=== PATIENT | female | born 1935 | race African-American/Black ===

== ENCOUNTER 2016-09-01 21:02 | Emergency (ER) | payer MEDICARE ==
--- NOTE | ~2016-09-01 | CR72 ---
[facility] A Service of [facility] & [facility] RADIOLOGY TEXT RESULTS PATIENT: MIKAELA MAYER LOCATION: [facility] : 35 UNIT #: [id number] AGE: [address]: Jimmie Pritchard MD SEX: F ORDER DR: [id number] [facility] [address] [place], [place] [address] [id number] E MR#: [id number] Acc #: [id number] NAME: MIKAELA MAYER : 1935 SEX: F STUDY DATE/TIME: 09/01/2016 21:20 UNIT: [facility] ROOM: STUDY DESCRIPTION: CR Chest Single View Portable Attending Physician: Jimmie Pritchard M.D. Ordering Physician: Jimmie Pritchard M.D. Primary Care Physician: Zac Benavides M.D. MEDICAL IMAGING REPORT This report is preliminary unless electronic signature is present EXAM Chest single view, 09/01/16 COMPARISON STUDIES Single view chest dated 06/09/16 HISTORY Hypertension, shortness of air, dizziness today. FINDINGS A single view of the chest was obtained. Lungs are well aerated. Heart and mediastinum are within normal limits. Stable prominence of the right hilar and infrahilar opacity likely relating to hilar structures rather than superimposed acute abnormality. Bilateral shoulder moderate osteoarthritis changes are noted, stable. IMPRESSION No significant interval change. Dictated by... Jarret Corrales M.D. THIS IS AN ELECTRONICALLY VERIFIED REPORT Jarret Corrales M.D. at 09/03/2016 1:45 PM CPR/ea TD: 09/02/2016 16:03 JOB #: [id number] MEDICAL IMAGING REPORT Page 1 of 1 COPY
--- NOTE | ~2016-09-01 | EKG ---
PATIENT: MIKAELA MAYER UNIT #: [id number] Ventricular Rate: 78 BPM Atrial Rate: 78 BPM P-R Interval: 152 ms QRS Duration: 80 ms Q-T Interval: 384 ms QTC Calculation(Bezet): 437 ms P [place]: 21 degrees Calculated R [place]: 51 degrees Calculated T [place]: 81 degrees Diagnosis Line: Normal sinus rhythm Diagnosis Line: Normal ECG Diagnosis Line: No previous ECGs available Diagnosis Line: Confirmed by MARY OSORIO MD ([id number]) on Diagnosis Line: 09/02/2016 3:52:02 PM INTERPRETING MD: YOANDY
[~2016-09-01 21:02] MED LIST: ALEVE; MOBIC PO; PLENDIL PO; VICODIN 5/500 T1 TAB PO
[2016-09-01 21:30] LABS: BASOPHIL% 0.4 % (0-2.5); EOSINOPHIL# 0.1 X10e3 (0-0.7); EOSINOPHIL% 1.7 % (0.0-7.0); HEMATOCRIT 33.3 % (35.0-45.0); HEMOGLOBIN 10.9 gm/dL (12.0-16.0); LYMPHOCYTE# 1.4 X10e3 (1.0-3.5); LYMPHOCYTE% 23.3 % (17.0-45.0); MEAN CELL VOLUME 88.1 FL (83-96); MEAN CORPUSCULAR HEMOGLOBIN 28.8 PG (28-34); MEAN CORPUSCULAR HGB CONC 32.6 g/dL (30-36); MEAN PLATELET VOLUME 8.5 FL (6.5-11.5); MONOCYTE# 0.7 X10e3 (0-1.0); MONOCYTE% 12.1 % (3.0-12.0); NEUTROPHIL# 3.7 X10e3 (1.5-7.1); NEUTROPHIL% 62.5 % (40-75); PLATELET COUNT 162 X10e3 (140-420); RED BLOOD COUNT 3.78 X10e (3.90-5.30); RED CELL DISTRIBUTION WIDTH 14.9 % (11.0-15.5); WHITE BLOOD COUNT 5.9 X10e3 (4.0-10.5)
[2016-09-01 21:39] LABS: DIFF IND NO
[2016-09-01 21:50] LABS: POC - CKMB <1.0 ng/mL (0.0-7.9); POC - TROPONIN <0.05 ng/mL (<=0.05)
[2016-09-01 21:57] LABS: ALBUMIN SERUM 4.1 g/dL (3.5-5.0); BILIRUBIN, DIRECT 0.1 mg/dL (0.0-0.2); BILIRUBIN,INDIRECT 0.4 mg/dL (0.0-0.9); BILIRUBIN,TOTAL 0.5 mg/dL (0.2-2.0); BUN/CREATININE RATIO 14.21; CALCIUM SERUM 9.4 mg/dL (8.4-10.2); CREATININE SERUM 1.9 mg/dL (0.6-1.4); GLOM FILT RATE Estimated 28.4 mL/min (>60); POTASSIUM 4.3 mmol/L (3.5-5.1); PROTEIN TOTAL SERUM 7.4 g/dL (6.0-8.3)
[2016-09-01 22:22] LABS: URINE SOURCE CLEAN CATCH
[2016-09-01 22:30] LABS: URINE APPEARANCE CLOUDY; URINE BILIRUBIN NEG (NEG); URINE BLOOD NEG (NEG); URINE COLOR YELLOW; URINE GLUCOSE NEG (NEG); URINE KETONE TRACE (NEG); URINE LEUKOCYTE ESTERASE NEG (NEG); URINE NITRATE NEG (NEG); URINE PH 5.5 (5-8); URINE PROTEIN NEG (NEG); URINE SPECIFIC GRAVITY 1.017 (1.003-1.035)
[2016-09-01 22:38] LABS: CULTURE INDICATED? NO
[2016-09-01 23:01] LABS: POC - CKMB <1.0 ng/mL (0.0-7.9); POC - TROPONIN <0.05 ng/mL (<=0.05)
== END 2016-09-01 23:15 | disposition home or self-care (01) ==
LOC: CED 21:02
PROVIDERS: Emergency Medicine
DX: I10 Essential (primary) hypertension (principal); R42 Dizziness and giddiness
CPT/HCPCS: 36415; 71010; 80048; 80076; 81003; 82553; 84484; 85025; 93005; 99283

== ENCOUNTER 2016-10-24 21:29 | Emergency (ER) | payer MEDICARE ==
--- NOTE | ~2016-10-24 | CT4 ---
[facility] A Service of [facility] & [facility] RADIOLOGY TEXT RESULTS PATIENT: MIKAELA MAYER LOCATION: [facility] : 35 UNIT #: [id number] AGE: [address]: Estela Cunningham MD SEX: F ORDER DR: [id number] [facility] [address] [place], [place] [address] [id number] E MR#: [id number] Acc #: [id number] NAME: MIKAELA MAYER : 1935 SEX: F STUDY DATE/TIME: 10/24/2016 23:08 UNIT: [facility] ROOM: STUDY DESCRIPTION: CT Abd and Pelv Wo Cont Attending Physician: Estela Cunningham M.D. Ordering Physician: Estela Cunningham M.D. Primary Care Physician: Zac Benavides M.D. MEDICAL IMAGING REPORT This report is preliminary unless electronic signature is present EXAM CT abdomen and pelvis, noncontrast, kidney stone protocol, 10/24/2016 HISTORY 80-year-old female in the ED complaining of 3-day history of right flank pain and low back pain. TECHNIQUE CT examination of the abdomen and pelvis was performed without oral or IV contrast using kidney stone protocol. This CT exam was performed with one or more of the following radiation dose reduction techniques: Automatic exposure control, adjustment of mA and/or kV according to patient size, and iterative reconstruction. COMPARISON CT abdomen/pelvis, 07/01/2016 FINDINGS ABDOMEN FINDINGS: No stone material is visible within the ureters or urinary bladder, and there is no evidence of urinary obstruction. Tiny nonobstructing parenchymal calcification upper-pole right kidney, tiny benign cyst lower-pole left kidney, unchanged. Liver, pancreas and spleen are normal in size and appearance without contrast. Nondistended gallbladder. No bile duct dilatation. Moderate sigmoid diverticulosis with no evidence of acute diverticulitis. Small bowel and colon are otherwise normal in caliber and appearance. The appendix is surgically absent by history. Normal caliber abdominal aorta. PELVIS FINDINGS: Uterus, ovaries, bladder and rectum are within normal limits. Left hip arthroplasty. [facility] A Service of [facility] & [facility] RADIOLOGY TEXT RESULTS PATIENT: MIKAELA MAYER [id number] 35 UNIT #: [id number] AGE: [address]: Estela Cunningham MD SEX: F ORDER DR: IMPRESSION 1. No acute abnormality within the abdomen or pelvis. No nephrolithiasis or evidence of urinary obstruction. 2. Moderate sigmoid diverticulosis without evidence of diverticulitis. Surgically absent appendix. Dictated by... Imtiaz Perez M.D. THIS IS AN ELECTRONICALLY VERIFIED REPORT Imtiaz Perez M.D. at 10/25/2016 6:05 AM VIOLETA/moreno TD: 10/24/2016 23:36 JOB #: [id number] MEDICAL IMAGING REPORT Page 1 of 1 COPY
--- NOTE | ~2016-10-24 | EKG ---
PATIENT: MIKAELA MAYER UNIT #: [id number] Ventricular Rate: 57 BPM Atrial Rate: 57 BPM P-R Interval: 164 ms QRS Duration: 72 ms Q-T Interval: 438 ms QTC Calculation(Bezet): 426 ms P [place]: 47 degrees Calculated R [place]: 50 degrees Calculated T [place]: 68 degrees Diagnosis Line: Sinus bradycardia Diagnosis Line: Otherwise normal ECG Diagnosis Line: No previous ECGs available Diagnosis Line: Confirmed by TOR SANTOS MD ([id number]) on 10/25/2016 Diagnosis Line: 6:44:18 PM INTERPRETING MD: DANIELLE CARCAMO
--- NOTE | ~2016-10-24 | CR72 ---
[facility] A Service of [facility] & [facility] RADIOLOGY TEXT RESULTS PATIENT: MIKAELA MAYER LOCATION: [facility] : 35 UNIT #: [id number] AGE: [address]: Estela Cunningham MD SEX: F ORDER DR: [id number] [facility] [address] [place], [place] [address] [id number] E MR#: [id number] Acc #: [id number] NAME: MIKAELA MAYER : 1935 SEX: F STUDY DATE/TIME: 10/24/2016 22:17 UNIT: [facility] ROOM: STUDY DESCRIPTION: CR Chest Single View Portable Attending Physician: Estela Cunningham M.D. Ordering Physician: Estela Cunningham M.D. Primary Care Physician: aZc Benavides M.D. MEDICAL IMAGING REPORT This report is preliminary unless electronic signature is present EXAM Chest x-ray, 10/24/2016 HISTORY 80-year-old female in the ED complaining of right flank pain beginning earlier today. TECHNIQUE AP portable chest x-ray. FINDINGS The exam shows no active disease in the chest. Heart size and pulmonary vascularity are normal. Cardiac loop recorder in the anterior chest wall. The lungs are expanded and clear. No change since 09/01/2016. IMPRESSION No active disease. Dictated by... Imtiaz Perez M.D. THIS IS AN ELECTRONICALLY VERIFIED REPORT Imtiaz Perez M.D. at 10/25/2016 6:05 AM VIOLETA/moreno TD: 10/24/2016 23:30 JOB #: [id number] MEDICAL IMAGING REPORT Page 1 of 1 COPY
[2016-10-24 22:23] LABS: URINE SOURCE CATH
[2016-10-24 22:27] LABS: URINE APPEARANCE CLEAR; URINE BILIRUBIN NEG (NEG); URINE BLOOD NEG (NEG); URINE COLOR YELLOW; URINE GLUCOSE NEG (NEG); URINE KETONE NEG (NEG); URINE LEUKOCYTE ESTERASE TRACE (NEG); URINE NITRATE NEG (NEG); URINE PROTEIN NEG (NEG); URINE SPECIFIC GRAVITY 1.015 (1.003-1.035)
[2016-10-24 22:28] LABS: URBCS1 AUWI 0-2 /[HPF] (0-2); URINE BACTERIA AUWI NEG (NEGATIVE); URINE SQUAMOUS EPITHELIAL CELL FEW /[HPF]; UWBCS1 AUWI 0-2 (0-5)
[2016-10-24 22:33] LABS: CULTURE INDICATED? NO
[2016-10-24 22:42] LABS: BASOPHIL% 0.7 % (0-2.5); EOSINOPHIL# 0.1 X10e3 (0-0.7); EOSINOPHIL% 2.1 % (0.0-7.0); HEMATOCRIT 32.1 % (35.0-45.0); HEMOGLOBIN 10.5 gm/dL (12.0-16.0); LYMPHOCYTE# 1.2 X10e3 (1.0-3.5); LYMPHOCYTE% 22.7 % (17.0-45.0); MEAN CELL VOLUME 89.3 FL (83-96); MEAN CORPUSCULAR HEMOGLOBIN 29.2 PG (28-34); MEAN CORPUSCULAR HGB CONC 32.6 g/dL (30-36); MEAN PLATELET VOLUME 9.6 FL (6.5-11.5); MONOCYTE# 0.5 X10e3 (0-1.0); MONOCYTE% 9.3 % (3.0-12.0); NEUTROPHIL# 3.4 X10e3 (1.5-7.1); NEUTROPHIL% 65.2 % (40-75); PLATELET COUNT 119 X10e3 (140-420); RED BLOOD COUNT 3.59 X10e (3.90-5.30); RED CELL DISTRIBUTION WIDTH 14.1 % (11.0-15.5); WHITE BLOOD COUNT 5.3 X10e3 (4.0-10.5)
[2016-10-24 22:46] LABS: DIFF IND NO
[2016-10-24 22:48] LABS: ALBUMIN SERUM 3.9 g/dL (3.5-5.0); ALKALINE PHOSPHATASE 51 U/L (32-92); ALT (SGPT) 17 U/L (10-40); AST (SGOT) 21 U/L (10-42); BILIRUBIN,TOTAL 0.8 mg/dL (0.2-2.0); BLOOD UREA NITROGEN 20 mg/dL (9-23); BUN/CREATININE RATIO 13.33; CALCIUM SERUM 9.3 mg/dL (8.4-10.2); CARBON DIOXIDE 25 mmol/L (22-31); CHLORIDE 108 mmol/L (100-111); CREATININE SERUM 1.5 mg/dL (0.6-1.4); GLOM FILT RATE Estimated 37.8 mL/min (>60); GLUCOSE FASTING 97 mg/dL (70-110); POTASSIUM 4.3 mmol/L (3.5-5.1); PROTEIN TOTAL SERUM 7.2 g/dL (6.0-8.3); SODIUM 141 mmol/L (135-145)
[2016-10-24 22:49] LABS: POC - CKMB <1.0 ng/mL (0.0-7.9); POC - TROPONIN <0.05 ng/mL (<=0.05)
[2016-10-24 22:53] LABS: BILIRUBIN, DIRECT <0.1 mg/dL (0.0-0.2); BILIRUBIN,INDIRECT 0.7 mg/dL (0.0-0.9)
[2016-10-25 00:01] LABS: POC - CKMB <1.0 ng/mL (0.0-7.9); POC - TROPONIN <0.05 ng/mL (<=0.05)
== END 2016-10-25 00:25 | disposition home or self-care (01) ==
LOC: CED 21:29
PROVIDERS: Emergency Medicine
DX: R10.9 Unspecified abdominal pain (principal); I10 Essential (primary) hypertension; Z90.89 Acquired absence of other organs
CPT/HCPCS: 36415; 51701; 71010; 74176; 80048; 80076; 81003; 82553; 84484; 85025; 93005; 96361; 96374; 99284; J1885

== ENCOUNTER → 2016-12-13 | Outpatient (CLI) | payer MEDICARE ==
[~2016-12-13] MED LIST changes: +HYDRALAZINE HCL50 MG PO; +LOPRESSOR PO; +MACROBID100 M1 PO; +NEURONTIN300 MG PO; +TRAMADOL HCL50 M1 PO; +TYLENOL #4 PO; +ZESTORETIC 10-1 EAC1 PO; +ZOFRAN ODT4 MG PO
--- NOTE | ~2016-12-13 | CR107 ---
[facility] A Service of [facility] & [facility] RADIOLOGY TEXT RESULTS PATIENT: MIKAELA MAYER LOCATION: [facility] : 35 UNIT #: [id number] AGE: [address]: Zac Benavides MD SEX: F ORDER DR: [id number] [facility] [address] [place], [place] [address] [id number] O MR#: [id number] Acc #: [id number] NAME: MIKAELA MAYER : 1935 SEX: F STUDY DATE/TIME: 12/13/2016 9:40 UNIT: [facility] ROOM: STUDY DESCRIPTION: CR Femur 2 Views Rt Attending Physician: Zac Benavides M.D. Referring Physician: Zac Benavides M.D. Ordering Physician: Zac Benavides M.D. Primary Care Physician: Zac Benavides M.D. MEDICAL IMAGING REPORT This report is preliminary unless electronic signature is present EXAM Right femur INDICATIONS Right thigh pain. Right lower extremity radiculopathy. FINDINGS 2 views of the right femur without comparison. There is no acute fracture or dislocation. Articulation at the hip and knee is anatomic. There is severe tricompartmental degenerative changes of the right knee. No knee effusion. IMPRESSION No acute findings. Severe osteoarthritis of the right knee Dictated by... Alexis Hickman M.D. THIS IS AN ELECTRONICALLY VERIFIED REPORT Alexis Hickman M.D. at 12/13/2016 8:09 PM VERONICA/chapinr TD: 12/13/2016 18:21 JOB #: [id number] MEDICAL IMAGING REPORT Page 1 of 1 COPY
--- NOTE | ~2016-12-13 | CR106 ---
[facility] A Service of [facility] & [facility] RADIOLOGY TEXT RESULTS PATIENT: MIKAELA MAYER LOCATION: [facility] : 35 UNIT #: [id number] AGE: [address]: Zac Benavides MD SEX: F ORDER DR: [id number] [facility] [address] [place], [place] [address] [id number] O MR#: [id number] Acc #: [id number] NAME: MIKAELA MAYER : 1935 SEX: F STUDY DATE/TIME: 12/13/2016 9:39 UNIT: [facility] ROOM: STUDY DESCRIPTION: CR Femur 2 Views Lt Attending Physician: aZc Benavides M.D. Referring Physician: Zac Benavides M.D. Ordering Physician: Zac Benavides M.D. Primary Care Physician: Zac Benavides M.D. MEDICAL IMAGING REPORT This report is preliminary unless electronic signature is present EXAM Left femur. HISTORY Left leg pain. FINDINGS 2 views of the left femur compared to the left hip obtained the same day. There is no acute fracture or dislocation. Alignment at the hip and knee is anatomic. 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 IMPRESSION Negative left femur Dictated by... Alexis Hickman M.D. THIS IS AN ELECTRONICALLY VERIFIED REPORT Alexis Hickman M.D. at 12/13/2016 8:10 PM VERONICA/nereida TD: 12/13/2016 18:08 JOB #: [id number] MEDICAL IMAGING REPORT Page 1 of 1 COPY
--- NOTE | ~2016-12-13 | CR151 ---
[facility] A Service of [facility] RADIOLOGY TEXT RESULTS PATIENT: MIKAELA MAYER LOCATION: [facility] : 35 UNIT #: [id number] AGE: [address]: Zac Benavides MD SEX: F ORDER DR: [id number] [facility] [address] [place], [place] [address] [id number] O MR#: [id number] Acc #: [id number] NAME: MIKAELA MAYER : 1935 SEX: F STUDY DATE/TIME: 12/13/2016 9:38 UNIT: [facility] ROOM: STUDY DESCRIPTION: CR Hip Min 2 Views Rt Attending Physician: Zac Benavides M.D. Referring Physician: Zac Benavides M.D. Ordering Physician: Zac Benavides M.D. Primary Care Physician: Zac Benavides M.D. MEDICAL IMAGING REPORT This report is preliminary unless electronic signature is present EXAM Right hip INDICATION Chronic right hip pain. Right lower extremity radiculopathy. FINDINGS AP view of the pelvis and frog-leg lateral view of the right hip. There is no acute fracture or dislocation. There is mild superior joint space narrowing of the right hip. The sacroiliac joints and pubic symphysis are within normal limits. IMPRESSION Osteoarthritis of the right hip. No acute findings. Dictated by... Alexis Hickman M.D. THIS IS AN ELECTRONICALLY VERIFIED REPORT Alexis Hickman M.D. at 12/13/2016 8:09 PM VERONICA/delroy TD: 12/13/2016 18:18 JOB #: [id number] MEDICAL IMAGING REPORT Page 1 of 1 COPY
--- NOTE | ~2016-12-13 | CR150 ---
[facility] A Service of [facility] / [facility] RADIOLOGY TEXT RESULTS PATIENT: MIKAELA MAYER LOCATION: [facility] : 35 UNIT #: [id number] AGE: [address]: Zac Benavides MD SEX: F ORDER DR: [id number] [facility] [address] [place], [place] [address] [id number] O MR#: [id number] Acc #: [id number] NAME: MIKAELA MAYER : 1935 SEX: F STUDY DATE/TIME: 12/13/2016 9:37 UNIT: [facility] ROOM: STUDY DESCRIPTION: CR Hip Min 2 Views Lt Attending Physician: Zac Benavides M.D. Referring Physician: Zac Benavides M.D. Ordering Physician: Zac Benavides M.D. Primary Care Physician: Zac Benavides M.D. MEDICAL IMAGING REPORT This report is preliminary unless electronic signature is present EXAM Left hip INDICATIONS Chronic left hip pain. Prior left total hip arthroplasty. Left lower extremity radiculopathy. FINDINGS AP view of the pelvis and frog-leg lateral view of the left hip. There is no acute fracture or dislocation. The left total hip arthroplasty has a normal alignment. IMPRESSION Anatomic alignment of the left total hip arthroplasty. No acute findings. Dictated by... Alexis Hickman M.D. THIS IS AN ELECTRONICALLY VERIFIED REPORT Alexis Hickman M.D. at 12/13/2016 8:09 PM Karlo TD: 12/13/2016 18:09 JOB #: [id number] MEDICAL IMAGING REPORT Page 1 of 1 COPY
--- NOTE | ~2016-12-13 | CR181 ---
[facility] A Service of [facility] RADIOLOGY TEXT RESULTS PATIENT: MIKAELA MAYER LOCATION: [facility] : 35 UNIT #: [id number] AGE: [address]: Zac Benavides MD SEX: F ORDER DR: [id number] [facility] [address] [place], [place] [address] [id number] O MR#: [id number] Acc #: [id number] NAME: MIKAELA MAYER : 1935 SEX: F STUDY DATE/TIME: 12/13/2016 9:41 UNIT: [facility] ROOM: STUDY DESCRIPTION: CR Lumbar Spine 2 or 3 Views Attending Physician: Zac Benavides M.D. Referring Physician: Zac Benavides M.D. Ordering Physician: Zac Benavides M.D. Primary Care Physician: Zac Benavides M.D. MEDICAL IMAGING REPORT This report is preliminary unless electronic signature is present EXAM Lumbar spine. INDICATIONS Low back pain with bilateral lower extremity radiculopathy. FINDINGS Three views of the lumbar spine compared to a CT abdomen and pelvis 10/24/2016. There is mild dextroscoliosis of the lumbar spine with the apex at L3. The there is grade 1 anterolisthesis of L4 on L5. Multilevel disc space narrowing is noted from L3-4 through L5-S1. There is associated facet arthropathy. Sacroiliac joints are within normal limits. IMPRESSION 1. No acute findings. 2. 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 Dictated by... Alexis Hickman M.D. THIS IS AN ELECTRONICALLY VERIFIED REPORT Alexis Hickman M.D. at 12/13/2016 8:09 PM VERONICA/narda TD: 12/13/2016 18:20 JOB #: [id number] [facility] A Service of [facility] RADIOLOGY TEXT RESULTS PATIENT: MIKAELA MAYER LOCATION: [facility] #: [id number] : 35 UNIT #: [id number] AGE: [address]: Zac Benavides MD SEX: F ORDER DR: MEDICAL IMAGING REPORT Page 1 of 1 COPY
== END | disposition home or self-care (01) ==
LOC: CRAD 09:16
DX: M54.9 Dorsalgia, unspecified (principal); M16.11 Unilateral primary osteoarthritis, right hip; M25.552 Pain in left hip; G89.29 Other chronic pain; M43.16 Spondylolisthesis, lumbar region; M47.896 Other spondylosis, lumbar region; M17.11 Unilateral primary osteoarthritis, right knee
CPT/HCPCS: 72100; 73502; 73552

== ENCOUNTER 2016-12-20 09:12 | Emergency (ER) | payer MEDICARE ==
[~2016-12-20] VITALS: Ht 170.2 cm; Wt 88.9 kg
--- NOTE | ~2016-12-20 | CR72 ---
[facility] A Service of [facility] & [facility] RADIOLOGY TEXT RESULTS PATIENT: MIKAELA MAYER LOCATION: [facility] : 35 UNIT #: [id number] AGE: [address]: Keon Patel MD SEX: F ORDER DR: [id number] [facility] [address] [place], [place] [address] [id number] E MR#: [id number] Acc #: [id number] NAME: MIKAELA MAYER : 1935 SEX: F STUDY DATE/TIME: 12/20/2016 10:06 UNIT: [facility] ROOM: STUDY DESCRIPTION: CR Chest Single View Portable Attending Physician: Keon Patel M.D. Referring Physician: Zac Benavides M.D. Ordering Physician: Keon Patel M.D. Primary Care Physician: Zac Benavides M.D. MEDICAL IMAGING REPORT This report is preliminary unless electronic signature is present EXAM Portable chest, 12/20/2016. COMPARISON 10/24/2016 CLINICAL HISTORY Short of air for 1 week. FINDINGS There is no pulmonary infiltrate, pleural effusion, pneumothorax, or suspicious nodule. Heart size normal. IMPRESSION Negative chest. Dictated by... Jamie Luna M.D. THIS IS AN ELECTRONICALLY VERIFIED REPORT Jamie Luna M.D. at 12/25/2016 5:21 PM TEV/german TD: 12/20/2016 11:56 JOB #: [id number] MEDICAL IMAGING REPORT Page 1 of 1 COPY
--- NOTE | ~2016-12-20 | EKG ---
PATIENT: MIKAELA MAYER UNIT #: [id number] Ventricular Rate: 57 BPM Atrial Rate: 57 BPM P-R Interval: 148 ms QRS Duration: 84 ms Q-T Interval: 454 ms QTC Calculation(Bezet): 441 ms P [place]: 69 degrees Calculated R [place]: 52 degrees Calculated T [place]: 66 degrees Diagnosis Line: Sinus bradycardia Diagnosis Line: Nonspecific T wave abnormality Diagnosis Line: Abnormal ECG Diagnosis Line: When compared with ECG of 24-OCT-2016 22:20, Diagnosis Line: Nonspecific T wave abnormality now evident in Diagnosis Line: Inferior leads Diagnosis Line: Nonspecific T wave abnormality now evident in Diagnosis Line: Anterolateral leads Diagnosis Line: Confirmed by TOR SANTOS MD ([id number]) on 12/22/2016 Diagnosis Line: 8:15:05 AM INTERPRETING MD: DANIELLE CARCAMO
--- NOTE | ~2016-12-20 | CT71 ---
[facility] A Service of [facility] RADIOLOGY TEXT RESULTS PATIENT: MIKAELA MAYER LOCATION: [facility] : 35 UNIT #: [id number] AGE: [address]: Keon Patel MD SEX: F ORDER DR: [id number] [facility] [address] [place], [place] [address] [id number] E MR#: [id number] Acc #: [id number] NAME: MIKAELA MAYER : 1935 SEX: F STUDY DATE/TIME: 12/20/2016 11:05 UNIT: [facility] ROOM: STUDY DESCRIPTION: CT Head Wo Contrast Attending Physician: Keon Patel M.D. Referring Physician: Zac Benavides M.D. Ordering Physician: Keon Patel M.D. Primary Care Physician: Zac Benavides M.D. MEDICAL IMAGING REPORT This report is preliminary unless electronic signature is present EXAM Head CT, 12/20 INDICATION Confusion and facial pain that started today. Patient may have taken the wrong medications. COMPARISON None TECHNIQUE Axial images were obtained from base to the vertex without contrast. This CT exam was performed with one or more of the following radiation dose reduction techniques: automatic exposure control, adjustment of mA and/or kV according to patient size, and iterative reconstruction. FINDINGS Ventricular size and configuration are normal. There is a mild degree of generalized age-appropriate atrophy. Chronic small vessel ischemic changes are present in the white matter. There is no acute infarct or hemorrhage. There are no masses. No skull fracture. IMPRESSION No acute findings. There is generalized atrophy with chronic small vessel ischemic disease in the white matter. Dictated by... Andrew Lewis Jr., M.D. THIS IS AN ELECTRONICALLY VERIFIED REPORT Andrew Lewis Jr., M.D. at 12/20/2016 4:50 PM ALFA/payam [facility] A Service of [facility] RADIOLOGY TEXT RESULTS PATIENT: MIKAELA MAYER LOCATION: [facility] : 35 UNIT #: [id number] AGE: [address]: Keon Patel MD SEX: F ORDER DR: TD: 12/20/2016 13:19 JOB #: [id number] MEDICAL IMAGING REPORT Page 1 of 1 COPY
[~2016-12-20 09:12] MED LIST changes: -HYDRALAZINE HCL50 MG PO; -LOPRESSOR PO; -MACROBID100 M1 PO; -NEURONTIN300 MG PO; -TRAMADOL HCL50 M1 PO; -TYLENOL #4 PO; -ZESTORETIC 10-1 EAC1 PO; -ZOFRAN ODT4 MG PO
[2016-12-20 10:13] LABS: BASOPHIL# 0.1 X10e3 (0-0.3); BASOPHIL% 1.1 % (0-2.5); EOSINOPHIL# 0.1 X10e3 (0-0.7); EOSINOPHIL% 1.4 % (0.0-7.0); HEMATOCRIT 33.8 % (35.0-45.0); HEMOGLOBIN 11.1 gm/dL (12.0-16.0); LYMPHOCYTE# 1.4 X10e3 (1.0-3.5); LYMPHOCYTE% 25.1 % (17.0-45.0); MEAN CELL VOLUME 88.7 FL (83-96); MEAN CORPUSCULAR HEMOGLOBIN 29.1 PG (28-34); MEAN CORPUSCULAR HGB CONC 32.8 g/dL (30-36); MEAN PLATELET VOLUME 9.1 FL (6.5-11.5); MONOCYTE# 0.5 X10e3 (0-1.0); MONOCYTE% 8.3 % (3.0-12.0); NEUTROPHIL# 3.5 X10e3 (1.5-7.1); NEUTROPHIL% 64.1 % (40-75); PLATELET COUNT 128 X10e3 (140-420); RED BLOOD COUNT 3.82 X10e (3.90-5.30); RED CELL DISTRIBUTION WIDTH 14.1 % (11.0-15.5); WHITE BLOOD COUNT 5.5 X10e3 (4.0-10.5)
[2016-12-20 10:15] LABS: DIFF IND NO
[2016-12-20 10:45] LABS: BILIRUBIN, DIRECT 0.1 mg/dL (0.0-0.2); BILIRUBIN,INDIRECT 0.5 mg/dL (0.0-0.9); BILIRUBIN,TOTAL 0.6 mg/dL (0.2-2.0); BUN/CREATININE RATIO 16.25; CALCIUM SERUM 9.3 mg/dL (8.4-10.2); CREATININE SERUM 1.6 mg/dL (0.6-1.4); GLOM FILT RATE Estimated 34.7 mL/min (>60); PROTEIN TOTAL SERUM 7.3 g/dL (6.0-8.3)
== END 2016-12-20 13:14 | disposition home or self-care (01) ==
LOC: CED 09:12
PROVIDERS: Emergency Medicine
DX: R25.3 Fasciculation (principal); T50.905A Adverse effect of unspecified drugs, medicaments and biological substances, initial encounter; I10 Essential (primary) hypertension; Z90.49 Acquired absence of other specified parts of digestive tract
CPT/HCPCS: 36415; 70450; 71010; 80048; 80076; 82140; 82947; 85025; 93005; 96374; 99285; J2405

== ENCOUNTER 2017-01-07 19:05 | Emergency (ER) | payer MEDICARE ==
[~2017-01-07] VITALS: Ht 170.2 cm; Wt 88.9 kg
--- NOTE | ~2017-01-07 | EKG ---
PATIENT: MIKAELA MAYER UNIT #: [id number] Ventricular Rate: 72 BPM Atrial Rate: 72 BPM P-R Interval: 148 ms QRS Duration: 72 ms Q-T Interval: 398 ms QTC Calculation(Bezet): 435 ms P [place]: 52 degrees Calculated R [place]: 29 degrees Calculated T [place]: 68 degrees Diagnosis Line: Sinus rhythm with occasional Premature ventricular Diagnosis Line: complexes Diagnosis Line: Nonspecific T wave abnormality Diagnosis Line: Abnormal ECG Diagnosis Line: When compared with ECG of 20-DEC-2016 10:01, Diagnosis Line: Premature ventricular complexes are now Present Diagnosis Line: Nonspecific T wave abnormality no longer evident Diagnosis Line: in Inferior leads Diagnosis Line: Confirmed by NADEEN BOOKER MD ([id number]) on Diagnosis Line: 01/08/2017 12:16:06 PM INTERPRETING MD: BRENDA
--- NOTE | ~2017-01-07 | CT4 ---
[facility] A Service of [facility] & [facility] RADIOLOGY TEXT RESULTS PATIENT: MIKAELA MAYER LOCATION: [facility] : 35 UNIT #: [id number] AGE: [address]: Jimmie Pritchard MD SEX: F ORDER DR: [id number] [facility] [address] [place], [place] [address] [id number] E MR#: [id number] Acc #: [id number] NAME: MIKAELA MAYER. : 1935 SEX: F STUDY DATE/TIME: 01/07/2017 23:07 UNIT: [facility] ROOM: STUDY DESCRIPTION: CT Abd and Pelv Wo Cont Attending Physician: Jimmie Pritchard M.D. Ordering Physician: Jimmie Pritchard M.D. Primary Care Physician: Zac Benavides M.D. MEDICAL IMAGING REPORT This report is preliminary unless electronic signature is present EXAM CT abdomen and pelvis, noncontrast, 01/07/2017. HISTORY 81-year-old female in the ED complaining of 5-day history of generalized abdomen pain, nausea and vomiting and decreased appetite. TECHNIQUE CT examination of the abdomen and pelvis was performed without oral or IV contrast, as requested. The lack of contrast limits this examination, particularly for evaluation of the GI tract. This CT exam was performed with one or more of the following radiation dose reduction techniques: automatic exposure control, adjustment of mA and/or kV according to patient size, and iterative reconstruction. COMPARISON CT abdomen/pelvis, 10/24/2016. ABDOMEN FINDINGS Mildly distended gallbladder. No bile duct dilatation. Liver, pancreas and spleen are normal in size and appearance. Tiny nonobstructing stone within the upper pole of each kidney. No evidence of urinary obstruction. No change since 10/24/2016. Moderate diverticulosis throughout the sigmoid colon. No CT evidence of acute diverticulitis. Small bowel and colon are otherwise normal in caliber and appearance, as imaged. The appendix is surgically absent by history. Extensive chronic postoperative scarring is noted in the right lower quadrant abdominal wall. Normal-caliber abdominal aorta. PELVIS FINDINGS Uterus, ovaries, urinary bladder and rectum are within normal limits. Left total hip arthroplasty. [facility] A Service of [facility] & [facility] RADIOLOGY TEXT RESULTS PATIENT: MIKAELA MAYER LOCATION: [facility] : 35 UNIT #: [id number] AGE: [address]: Jimmie Pritchard MD SEX: F ORDER DR: Limited lung base images show no active disease in the lower chest. IMPRESSION 1. No definite acute abnormality within the abdomen or pelvis. 2. Sigmoid diverticulosis without evidence of acute diverticulitis. Surgically absent appendix. 3. Single tiny nonobstructing calculus within each kidney. 4. Mildly distended but otherwise unremarkable gallbladder. No bile duct dilatation. Dictated by... Imtiaz Perez M.D. THIS IS AN ELECTRONICALLY VERIFIED REPORT Imtiaz Perez M.D. at 01/08/2017 4:46 PM VIOLETA/luz TD: 01/08/2017 11:21 JOB #: [id number] MEDICAL IMAGING REPORT Page 1 of 1 COPY
[2017-01-07 19:40] LABS: BASOPHIL# 0.1 X10e3 (0-0.3); EOSINOPHIL% 0.3 % (0.0-7.0); HEMATOCRIT 37.1 % (35.0-45.0); HEMOGLOBIN 12.4 gm/dL (12.0-16.0); LYMPHOCYTE# 1.2 X10e3 (1.0-3.5); LYMPHOCYTE% 19.7 % (17.0-45.0); MEAN CELL VOLUME 87.9 FL (83-96); MEAN CORPUSCULAR HEMOGLOBIN 29.5 PG (28-34); MEAN CORPUSCULAR HGB CONC 33.6 g/dL (30-36); MEAN PLATELET VOLUME 8.9 FL (6.5-11.5); MONOCYTE# 0.6 X10e3 (0-1.0); MONOCYTE% 9.3 % (3.0-12.0); NEUTROPHIL# 4.3 X10e3 (1.5-7.1); NEUTROPHIL% 69.7 % (40-75); PLATELET COUNT 149 X10e3 (140-420); RED BLOOD COUNT 4.22 X10e (3.90-5.30); RED CELL DISTRIBUTION WIDTH 14.5 % (11.0-15.5); WHITE BLOOD COUNT 6.2 X10e3 (4.0-10.5)
[2017-01-07 19:41] LABS: DIFF IND NO
[2017-01-07 19:59] LABS: ALBUMIN SERUM 4.2 g/dL (3.5-5.0); BILIRUBIN, DIRECT 0.2 mg/dL (0.0-0.2); BILIRUBIN,INDIRECT 0.7 mg/dL (0.0-0.9); BILIRUBIN,TOTAL 0.9 mg/dL (0.2-2.0); BUN/CREATININE RATIO 12.27; CALCIUM SERUM 9.6 mg/dL (8.4-10.2); CREATININE SERUM 2.2 mg/dL (0.6-1.4); GLOM FILT RATE Estimated 23.6 mL/min (>60); POTASSIUM 3.9 mmol/L (3.5-5.1); PROTEIN TOTAL SERUM 7.8 g/dL (6.0-8.3)
[2017-01-07 22:20] LABS: POC - CKMB <1.0 ng/mL (0.0-7.9); POC - TROPONIN <0.05 ng/mL (<=0.05)
[2017-01-08 00:04] LABS: URINE SOURCE CLEAN CATCH
[2017-01-08 00:07] LABS: URINE APPEARANCE CLOUDY; URINE BILIRUBIN NEG (NEG); URINE BLOOD NEG (NEG); URINE COLOR YELLOW; URINE GLUCOSE NEG (NEG); URINE KETONE 1+ (NEG); URINE LEUKOCYTE ESTERASE TRACE (NEG); URINE NITRATE NEG (NEG); URINE PROTEIN NEG (NEG); URINE SPECIFIC GRAVITY 1.014 (1.003-1.035)
[2017-01-08 00:10] LABS: CULTURE INDICATED? YES; URINE BACTERIA AUWI 2+ (NEGATIVE); URINE SQUAMOUS EPITHELIAL CELL MOD /[HPF]
== END 2017-01-08 01:36 | disposition home or self-care (01) ==
LOC: CED 19:05
PROVIDERS: Emergency Medicine
DX: N39.0 Urinary tract infection, site not specified (principal); I10 Essential (primary) hypertension
CPT/HCPCS: 36415; 74176; 80048; 80076; 81003; 82553; 83690; 84484; 85025; 87086; 93005; 96360; 99284; J2405

== ENCOUNTER 2017-01-10 15:13 | Inpatient (IN) | payer MEDICARE ==
[~2017-01-10] VITALS: Ht 170.2 cm; Wt 65.8 kg
--- NOTE | ~2017-01-10 | US67 ---
[facility] A Service of [facility] RADIOLOGY TEXT RESULTS PATIENT: MIKAELA MAYER LOCATION: [facility] : 35 UNIT #: [id number] AGE: [address]: Trina Oshea MD SEX: F ORDER DR: [id number] [facility] [address] [facility]. [place], [place] [address] [id number] MR#: [id number] Acc #: [id number] NAME: MIKAELA MAYER : 1935 SEX: F STUDY DATE/TIME: 01/11/2017 8:22 UNIT: [facility] ROOM: [facility] STUDY DESCRIPTION: US Gallbladder Attending Physician: Trina Oshea M.D. Ordering Physician: Mirna Gann M.D. Primary Care Physician: Zac Benavides M.D. MEDICAL IMAGING REPORT This report is preliminary unless electronic signature is present EXAM Gallbladder ultrasound INDICATION Diarrhea and nausea for 8 days. TECHNIQUE Real-scale and color Doppler sonographic images were obtained through the right upper quadrant. FINDINGS There is limited visualization of the pancreas. It did appear unremarkable on an unenhanced CT performed January 07, 2017. Exam is essentially nondiagnostic due to patient body habitus and poor quality of the images. On prior study from January 07, 2017 patient's gallbladder did appear mildly distended but was not thick-walled and no obvious stones or sludge were seen within the gallbladder. IMPRESSION Nondiagnostic examination due to patient's body habitus and exam technique. Dictated by... Analia Tijerina M.D. THIS IS AN ELECTRONICALLY VERIFIED REPORT Analia Tijerina M.D. at 01/23/2017 8:12 AM AFF/rnr TD: 01/11/2017 23:14 JOB #: [id number] [facility] A Service [facility] RADIOLOGY TEXT RESULTS PATIENT: MIKAELA MAYER LOCATION: [place] [address] : 35 UNIT #: [id number] AGE: [address]: Trina Oshea MD SEX: F ORDER DR: MEDICAL IMAGING REPORT Page 1 of 1 COPY
--- NOTE | ~2017-01-10 | HP ---
Unit #: [id number] #: [id number] Patient: MIKAELA MAYER [id number] [address] [place], [place] [address] [id number] MR#: [id number] NAME: MIKAELA MAYER. ROOM: Age: 81 Sex: F Admission Date: 01/10/2017 : 1935 Attending Physician: Joann Sorensen M.D. Primary Care Physician: Zac Benavides M.D. HISTORY AND PHYSICAL CHIEF COMPLAINT Nausea, diarrhea, acute on chronic kidney disease, accelerated hypertension. HISTORY OF PRESENT ILLNESS This pleasant 81-year-old female with chronic kidney disease, hypertension, and dementia, is admitted for complaints of nausea. The patient states that she was well until two weeks prior to admission when she began to experience nausea and anorexia with very little p.o. intake, not even keeping down her usual medicines. She then developed diarrhea about a week ago. Denies abdominal pain with the above but states that she has felt somewhat feverish. No ill contacts or eating anything out of the ordinary. She was seen in the emergency department a few days ago and was diagnosed with a possible UTI and started on Macrobid without improvement of her symptoms. Of note, a CT scan was performed recently showing mildly distended gallbladder and diverticular disease. She comes back to the emergency department today where she is found to have acute on chronic kidney disease secondary to dehydration, hypokalemia, and elevated lipase despite a benign abdomen. Repeat urinalysis was performed and does not show pyuria. Her recent urine cultures were negative for significant bacterial growth as well. In the ER, she was given Zofran and started on IV fluids. PAST MEDICAL HISTORY 1. Chronic kidney disease with a BUN of 26 and creatinine of 1.6 in the past. 2. Essential hypertension. 3. Dementia. 4. Cataract extraction. 5. Appendectomy. ALLERGIES No known drug allergies. CURRENT HOME MEDICATIONS 1. Ultram 50 mg b.i.d. 2. Neurontin 300 mg t.i.d. 3. Macrobid, I believe this was recently started, 100 mg b.i.d. 4. Zofran p.r.n. 5. Zestoretic 10/12.5 mg daily. 6. Tylenol No. 4 b.i.d. as needed. 7. Lopressor 50 mg daily. Unit #: [id number] #: [id number] Patient: MIKAELA MAYER FAMILY HISTORY Negative for colon disease. SOCIAL HISTORY Patient lives alone. She is a lifelong nonsmoker and does not drink alcohol. REVIEW OF SYSTEMS Notable for nausea, anorexia, some lightheadedness, diarrhea, kidney disease, hypertension, dementia, and above-mentioned surgeries. All other systems were reviewed and are otherwise negative. PHYSICAL EXAMINATION GENERAL: A pleasant 81-year-old female currently in no acute distress. VITAL SIGNS: Temperature 98.2, pulse 73, respirations 18, blood pressure 152/92, and O2 saturation is 100% on room air. HEENT: Eyes PERRLA. Extraocular muscles are intact. Pharynx is benign. NECK: Supple without adenopathy or thyromegaly. CHEST: Clear. CARDIAC: Normal S1 and S2 without S3, S4, or murmur. ABDOMEN: Bowel sounds are present. No hepatosplenomegaly, tenderness, or masses. EXTREMITIES: Without edema. Pedal pulses are present. NEUROLOGIC: Patient is awake and alert. She is oriented, although she is a bit forgetful. Cranial nerves are intact. She has equal strength throughout. DIAGNOSTIC STUDIES ADMISSION LABORATORY: Hematocrit is 35.9 with normal white count and platelet count of 132,000. SMA-12: Potassium is 3, BUN 29 and creatinine 2.3, up from a BUN of 26 and creatinine of 1.6 in the past. Lipase is 190. Current urinalysis reveals 2+ ketones but no significant white cells or red cells. IMAGING: Recent CT scan shows mildly distended gallbladder and diverticular disease. ASSESSMENT 1. Complaints of nausea and anorexia for the past two weeks with elevated lipase. 2. One week of diarrhea. 3. Acute on chronic kidney disease which may be in part secondary to dehydration. 4. Hypokalemia. 5. Accelerated hypertension. Patient states that she has not been keeping down her medicines. 6. Mild dementia. PLANS 1. Discontinue Macrobid as recent urine cultures showed no significant bacterial growth. 2. IV fluids and supportive treatment. 3. Replace potassium and check magnesium. 4. Blood pressure control and hold Zestoretic. 5. Obtain gallbladder ultrasound, triglyceride level, TSH, and EKG. 6. H2 blockers for now. 7. Recheck labs in the morning. Unit #: [id number] #: [id number] Patient: MIKAELA MAYER 8. SCDs. 9. If not improving, will ask GI to see in consultation. 1. Dictated by Mirna Gann M.D. AML/am TD: 01/10/2017 21:37 JOB #: [id number] HISTORY AND PHYSICAL Page 1 of 1 X Mirna Gann MD X HISTORY AND PHYSICAL
--- NOTE | ~2017-01-10 | EKG ---
PATIENT: MIKAELA MAYER UNIT #: [id number] Ventricular Rate: 73 BPM Atrial Rate: 73 BPM P-R Interval: 154 ms QRS Duration: 72 ms Q-T Interval: 394 ms QTC Calculation(Bezet): 434 ms P Maxie: 49 degrees Calculated R Maxie: 50 degrees Calculated T Maxie: 96 degrees Diagnosis Line: Normal sinus rhythm Diagnosis Line: T wave abnormality, consider anterolateral Diagnosis Line: ischemia Diagnosis Line: Abnormal ECG Diagnosis Line: When compared with ECG of 07-JAN-2017 22:03, Diagnosis Line: Premature ventricular complexes are no longer Diagnosis Line: Present Diagnosis Line: Nonspecific T wave abnormality now evident in Diagnosis Line: Inferior leads Diagnosis Line: Inverted T waves have replaced nonspecific T wave Diagnosis Line: abnormality in Anterolateral leads Diagnosis Line: Confirmed by TOR SANTOS MD ([id number]) on 01/11/2017 Diagnosis Line: 5:17:25 PM INTERPRETING MD: DANIELLE CARCAMO
--- NOTE | ~2017-01-10 | DS ---
Unit #: [id number] #: [id number] Patient: MIKAELA MAYER [id number] [address] [address] [id number] I MR#: [id number] NAME: MIKAELA MAYER. ROOM: 47 Age: 81 Sex: F Admission Date: 01/10/2017 : 1935 Discharge Date: 01/15/2017 Attending Physician: Trina Oshea M.D. Primary Care Physician: Zac Benavides M.D. DISCHARGE SUMMARY PRINCIPAL DIAGNOSES 1. Acute kidney injury on chronic kidney disease stage 3, prerenal, discharge creatinine 1.2. 2. Elevated lipase with questionable [id number] pancreatitis. 3. Diarrhea with negative infectious workup. 4. Chronic alcohol use. 5. Chronic thrombocytopenia with discharge platelet count of 94,000. 6. Hypokalemia. 7. Hypertension. 8. Dehydration. 9. Normocytic anemia. 10. Mild memory loss. 11. Moderate protein malnutrition. CONSULTANTS Dr. Jones, gastroenterology. DIAGNOSTIC DATA IMAGING: CT scan of the abdomen and pelvis without contrast on 01/07/2017 with no acute abnormality. Sigmoid diverticulosis is noted. Tiny nonobstructing calculus within each kidney. Distended, but otherwise unremarkable gallbladder. Right upper quadrant ultrasound on 01/11/2017 which was nondiagnostic, but gallbladder wall did not appear thickened. No stone or sludge. CLINICAL HISTORY/HOSPITAL COURSE Ms. Mayer is an 81-year-old female who presented to the emergency department with complaints of nausea and diarrhea of 2 weeks duration. Please refer to H and P for further details. CT scan of the abdomen and pelvis was unremarkable in the emergency department. However, the patient was found to have a creatinine of 2.3, up from a baseline of approximately 1.6. Lipase was also found to be elevated at 190. White blood cell count was normal. The patient was subsequently admitted. The patient was placed on IV fluids, particularly in regard to her acute kidney injury and renal function has returned to normal. I will note that her HCTZ/lisinopril was initially held due to her acute kidney injury and creatinine subsequently increased. I am going to replace this medication with hydralazine and blood pressure can be monitored on an outpatient basis. In regard to diarrhea, antibiotics were initially held. Stool cultures were done and were all completely unremarkable. Given she had continued Unit #: [id number] #: [id number] Patient: MIKAELA MAYER diarrhea in association with elevated lipase, Dr. Jones was consulted. Her diarrhea has resolved spontaneously. Unclear whether perhaps this is a viral gastroenteritis, plus/minus some relationship to her elevated lipase as outlined above. As noted above, the patient had an elevated lipase. However, she had no complaints of abdominal pain. The day following admission her lipase actually increased to 270, but then trended back down with a full liquid diet. At this point, again Dr. Jones was consulted. Discussion with some friends in the room indicates the patient does use alcohol on a rather regular basis, but patient is not direct with answering how much or how frequently. Dr. Jones suspects perhaps the patient had a mild [id number] pancreatitis. I will note the day prior to discharge lipase was trending down at 128. The patient is now tolerating a regular diet without pain. The plan is for the patient to be seen on an outpatient basis by Dr. Jones, at which point she needs at least an EGD to evaluate for any varices and/or other stigmata of alcohol related disease. I will note, the patient did have tumor markers, including CA 19-9 and CA 125 done and these are pending. I will follow these upon discharge. CEA was normal at 1.6. The patient today is otherwise doing well and will be discharged home. DISCHARGE CONDITION Stable. DISPOSITION Discharge to home. DISCHARGE MEDICATIONS 1. Gabapentin 300 mg t.i.d. 2. Zofran 4 mg p.o. t.i.d. p.r.n. nausea/vomiting. 3. Metoprolol tartrate 50 mg daily. 4. Hydralazine 50 mg t.i.d. with 1 refill given. 5. Tylenol 4 one tablet p.o. b.i.d. p.r.n. pain. 6. Tramadol 50 mg p.o. b.i.d. DISCHARGE INSTRUCTIONS 1. The patient is instructed to follow a regular diet. 2. She can increase her activity as tolerated. 3. She should use a walker and/or cane at all times. FOLLOWUP 1. The patient will follow up with Dr. Jones in approximately four weeks. Does need at least outpatient EGD for evaluation. 2. The patient will follow up with Dr. Zac Benavides in two weeks. Dictated by... Trina Oshea M.D. PHIL/dereje TD: 01/16/2017 11:16 JOB #: [id number] Unit #: [id number] #: [id number] Patient: MIKAELA MAYER DISCHARGE SUMMARY Page 1 of 1 X Trina Oshea MD X DISCHARGE SUMMARY
[2017-01-10 17:20] LABS: URINE SOURCE CLEAN CATCH
[2017-01-10 17:24] LABS: URINE APPEARANCE CLOUDY; URINE BILIRUBIN NEG (NEG); URINE BLOOD NEG (NEG); URINE COLOR YELLOW; URINE GLUCOSE NEG (NEG); URINE KETONE 2+ (NEG); URINE LEUKOCYTE ESTERASE NEG (NEG); URINE NITRATE NEG (NEG); URINE PROTEIN NEG (NEG); URINE SPECIFIC GRAVITY 1.013 (1.003-1.035); URINE UROBILINOGEN 0.2 MG/DL (NEG)
[2017-01-10 17:24] LABS: BASOPHIL% 0.6 % (0-2.5); EOSINOPHIL% 0.4 % (0.0-7.0); HEMATOCRIT 35.9 % (35.0-45.0); HEMOGLOBIN 12.3 gm/dL (12.0-16.0); LYMPHOCYTE# 1.2 X10e3 (1.0-3.5); LYMPHOCYTE% 17.7 % (17.0-45.0); MEAN CELL VOLUME 87.4 FL (83-96); MEAN CORPUSCULAR HEMOGLOBIN 29.9 PG (28-34); MEAN CORPUSCULAR HGB CONC 34.2 g/dL (30-36); MEAN PLATELET VOLUME 9.3 FL (6.5-11.5); MONOCYTE# 0.6 X10e3 (0-1.0); MONOCYTE% 9.3 % (3.0-12.0); NEUTROPHIL# 4.9 X10e3 (1.5-7.1); PLATELET COUNT 132 X10e3 (140-420); RED BLOOD COUNT 4.11 X10e (3.90-5.30); RED CELL DISTRIBUTION WIDTH 14.5 % (11.0-15.5); WHITE BLOOD COUNT 6.9 X10e3 (4.0-10.5)
[2017-01-10 17:28] LABS: CULTURE INDICATED? NO
[2017-01-10 17:29] LABS: DIFF IND NO
[2017-01-10 17:52] LABS: ALBUMIN SERUM 4.6 g/dL (3.5-5.0); BILIRUBIN, DIRECT 0.2 mg/dL (0.0-0.2); BILIRUBIN,TOTAL 1.2 mg/dL (0.2-2.0); BUN/CREATININE RATIO 12.6; CALCIUM SERUM 9.8 mg/dL (8.4-10.2); CREATININE SERUM 2.3 mg/dL (0.6-1.4); GLOM FILT RATE Estimated 22.4 mL/min (>60); PROTEIN TOTAL SERUM 8.2 g/dL (6.0-8.3)
[2017-01-10] MEDS ORDERED: TRAMADOL HCL50 M1 PO (18:47)
[2017-01-10] MEDS ORDERED: MACROBID100 M1 PO (18:48)
[2017-01-10] MEDS ORDERED: NEURONTIN300 MG PO (18:48)
[2017-01-10] MEDS ORDERED: ZOFRAN ODT4 MG PO (18:49)
[2017-01-10] MEDS ORDERED: ZESTORETIC 10-1 EAC1 PO (18:50)
[2017-01-10] MEDS ORDERED: TYLENOL #4 PO (18:50)
[2017-01-10] MEDS ORDERED: LOPRESSOR PO (18:51)
[2017-01-11 10:16] LABS: BASOPHIL% 0.8 % (0-2.5); EOSINOPHIL# 0.1 X10e3 (0-0.7); EOSINOPHIL% 2.3 % (0.0-7.0); HEMATOCRIT 33.3 % (35.0-45.0); HEMOGLOBIN 11.1 gm/dL (12.0-16.0); LYMPHOCYTE% 19.4 % (17.0-45.0); MEAN CELL VOLUME 87.9 FL (83-96); MEAN CORPUSCULAR HEMOGLOBIN 29.4 PG (28-34); MEAN CORPUSCULAR HGB CONC 33.4 g/dL (30-36); MEAN PLATELET VOLUME 9.8 FL (6.5-11.5); MONOCYTE# 0.6 X10e3 (0-1.0); MONOCYTE% 10.8 % (3.0-12.0); NEUTROPHIL# 3.5 X10e3 (1.5-7.1); NEUTROPHIL% 66.7 % (40-75); PLATELET COUNT 112 X10e3 (140-420); RED BLOOD COUNT 3.78 X10e (3.90-5.30); RED CELL DISTRIBUTION WIDTH 14.4 % (11.0-15.5); WHITE BLOOD COUNT 5.3 X10e3 (4.0-10.5)
[2017-01-11 10:21] LABS: DIFF IND NO
[2017-01-11 11:02] LABS: THYROID STIMULATING HORMONE 0.7 uIU/ml (0.34-5.60)
[2017-01-11 11:09] LABS: FREE THYROXIN (T4) 1.06 ng/dL (0.58-1.64)
[2017-01-11 11:13] LABS: ALBUMIN SERUM 3.7 g/dL (3.5-5.0); BILIRUBIN,TOTAL 0.7 mg/dL (0.2-2.0); BUN/CREATININE RATIO 13.52; CALCIUM SERUM 8.9 mg/dL (8.4-10.2); CREATININE SERUM 1.7 mg/dL (0.6-1.4); GLOM FILT RATE Estimated 32.2 mL/min (>60); MAGNESIUM 1.9 mg/dL (1.6-3.0); POTASSIUM 3.2 mmol/L (3.5-5.1); PROTEIN TOTAL SERUM 6.7 g/dL (6.0-8.3)
[2017-01-12 03:21] LABS: HEMATOCRIT 29.4 % (35.0-45.0); HEMOGLOBIN 9.7 gm/dL (12.0-16.0); MEAN CELL VOLUME 87.7 FL (83-96); MEAN CORPUSCULAR HGB CONC 33.1 g/dL (30-36); MEAN PLATELET VOLUME 9.5 FL (6.5-11.5); RED BLOOD COUNT 3.36 X10e (3.90-5.30); RED CELL DISTRIBUTION WIDTH 14.3 % (11.0-15.5); WHITE BLOOD COUNT 4.8 X10e3 (4.0-10.5)
[2017-01-12 04:02] LABS: ALBUMIN SERUM 3.3 g/dL (3.5-5.0); BILIRUBIN,TOTAL 0.8 mg/dL (0.2-2.0); CALCIUM SERUM 8.6 mg/dL (8.4-10.2); CREATININE SERUM 1.6 mg/dL (0.6-1.4); GLOM FILT RATE Estimated 34.7 mL/min (>60); MAGNESIUM 1.7 mg/dL (1.6-3.0); POTASSIUM 3.5 mmol/L (3.5-5.1)
[2017-01-13 03:49] LABS: HEMATOCRIT 31.3 % (35.0-45.0); HEMOGLOBIN 10.3 gm/dL (12.0-16.0); MEAN CELL VOLUME 88.7 FL (83-96); MEAN CORPUSCULAR HEMOGLOBIN 29.2 PG (28-34); MEAN CORPUSCULAR HGB CONC 32.9 g/dL (30-36); MEAN PLATELET VOLUME 9.9 FL (6.5-11.5); RED BLOOD COUNT 3.53 X10e (3.90-5.30); RED CELL DISTRIBUTION WIDTH 14.3 % (11.0-15.5); WHITE BLOOD COUNT 5.4 X10e3 (4.0-10.5)
[2017-01-13 03:58] LABS: BUN/CREATININE RATIO 8.57; CALCIUM SERUM 8.5 mg/dL (8.4-10.2); CREATININE SERUM 1.4 mg/dL (0.6-1.4); GLOM FILT RATE Estimated 40.7 mL/min (>60); MAGNESIUM 2.1 mg/dL (1.6-3.0); POTASSIUM 4.3 mmol/L (3.5-5.1)
[2017-01-14 03:18] LABS: HEMATOCRIT 28.7 % (35.0-45.0); HEMOGLOBIN 9.5 gm/dL (12.0-16.0); MEAN CELL VOLUME 88.9 FL (83-96); MEAN CORPUSCULAR HEMOGLOBIN 29.3 PG (28-34); MEAN CORPUSCULAR HGB CONC 32.9 g/dL (30-36); MEAN PLATELET VOLUME 9.4 FL (6.5-11.5); RED BLOOD COUNT 3.23 X10e (3.90-5.30); RED CELL DISTRIBUTION WIDTH 14.3 % (11.0-15.5); WHITE BLOOD COUNT 4.3 X10e3 (4.0-10.5)
[2017-01-14 03:45] LABS: C-REACTIVE PROTEIN 0.5 mg/dl (0-0.9)
[2017-01-14 03:48] LABS: ALBUMIN SERUM 2.9 g/dL (3.5-5.0); BILIRUBIN,TOTAL 0.9 mg/dL (0.2-2.0); BUN/CREATININE RATIO 6.66; CALCIUM SERUM 8.6 mg/dL (8.4-10.2); CREATININE SERUM 1.2 mg/dL (0.6-1.4); GLOM FILT RATE Estimated 49.1 mL/min (>60); MAGNESIUM 1.7 mg/dL (1.6-3.0); POTASSIUM 4.5 mmol/L (3.5-5.1); PROTEIN TOTAL SERUM 5.5 g/dL (6.0-8.3)
[2017-01-14 03:54] LABS: CEA (CARCINOEMBRYONIC AG) 1.6 ng/mL (0.0-3.0)
[2017-01-15] MEDS ORDERED: HYDRALAZINE HCL50 MG PO (09:33)
[2017-01-15 09:52] LABS: MAGNESIUM 1.8 mg/dL (1.6-3.0); POTASSIUM 4.3 mmol/L (3.5-5.1)
[2017-01-17 09:07] LABS: CA 19-9 29 U/mL (<34); CA125 10 U/mL (<35)
== END 2017-01-15 11:45 | disposition home or self-care (01) | DRG 682 ==
LOC: CED 15:13 → CEDOF 21:30 → CED 21:58 → CEDOF 21:58 → C4C 01-11 00:44 → CEDOF 01-11 00:44 → C4C 01-11 08:01
PROVIDERS: Internal Medicine; Internal Medicine Endocrinology, Diabetes & Metabolism
DX: N17.9 Acute kidney failure, unspecified (principal); K85.90 Acute pancreatitis without necrosis or infection, unspecified; E44.0 Moderate protein-calorie malnutrition; D69.6 Thrombocytopenia, unspecified; E86.0 Dehydration; F03.90 Unspecified dementia, unspecified severity, without behavioral disturbance, psychotic disturbance, mood disturbance, and anxiety; N39.0 Urinary tract infection, site not specified; I12.9 Hypertensive chronic kidney disease with stage 1 through stage 4 chronic kidney disease, or unspecified chronic kidney disease; N18.3 Chronic kidney disease, stage 3 (moderate); R19.7 Diarrhea, unspecified; E87.6 Hypokalemia; D64.9 Anemia, unspecified; Z98.49 Cataract extraction status, unspecified eye; R63.0 Anorexia
CPT/HCPCS: 36415; 74176; 76705; 80048; 80053; 80076; 81003; 82150; 82378; 82553; 83690; 83735; 84132; 84439; 84443; 84478; 84484; 85025; 85027; 86140; 86301; 86304; 87045; 87086; 87177; 87209; 87427; 87493; 87899; 93005; 96360; 97110; 97116; 97162; 97166; 97535; 99284; 99285; G8978-GP; G8979-GP; G8987-GO; G8988-GO; J0360; J2270; J2405; J3475; J3490